=== PATIENT | male | born 1990 | race Caucasian/White ===

== ENCOUNTER → 2020-02-14 14:08 | Outpatient (ROUT) | payer OTHER, MEDICAID, SELFPAY ==
[2020-02-14 15:43] LABS: Urine N gonorrhoeae NOT DETECTED
[2020-02-14 15:55] LABS: Urine Chlamydia NOT DETECTED
== END ==
PROVIDERS: Visit Provider Nurse Practitioner
DX: Z11.3 Encounter for screening for infections with a predominantly sexual mode of transmission (principal)
CPT/HCPCS: 87491; 87591